=== PATIENT | female | born 1980 | race Caucasian/White ===

== ENCOUNTER 2022-04-11 07:48 | Outpatient (CLI) | payer OTHER, SELFPAY ==
[2022-04-11 09:15] LABS: Albumin* 4.4 g/dL (3.3-5.0)
[2022-04-11 09:16] LABS: Chloride* 106 mmol/L (96-114); Potassium* 4.2 mmol/L (3.6-5.1); Sodium* 140 mmol/L (135-149)
[2022-04-11 09:18] LABS: Bilirubin Total* 0.8 mg/dL (0.1-1.5); Carbon Dioxide* 25 mmol/L (20-32); Cholesterol* 180 mg/dL (90-199); Creatinine* 0.6 mg/dL (0.5-1.5); Estimated Glomerular Filt Rate 116 ml/min
[2022-04-11 09:19] LABS: Alanine Aminotransferase* 55 U/L (4-35); Alkaline Phosphatase* 100 U/L (40-150); Aspartate Amino Transferase* 45 U/L (12-35); Blood Urea Nitrogen* 17 mg/dL (5-24); Calcium* 9.4 mg/dL (8.4-10.6); Glucose* 90 mg/dL (60-115); HDL Cholesterol* 34 mg/dL (>=50); LDL Cholesterol Calculated 113 mg/dL (<100); Triglycerides* 163 mg/dL (40-149)
== END 2022-04-11 07:49 | disposition home or self-care (01) ==
LOC: NFLDREF 07:48
PROVIDERS: PCP Family Medicine; Visit Provider Family Medicine
DX: Z01.419 Encounter for gynecological examination (general) (routine) without abnormal findings (principal); E55.9 Vitamin D deficiency, unspecified; E66.9 Obesity, unspecified; F41.8 Other specified anxiety disorders; Z13.228 Encounter for screening for other metabolic disorders; Z13.6 Encounter for screening for cardiovascular disorders
CPT/HCPCS: 80053; 80061

== ENCOUNTER 2023-06-18 07:59 | Outpatient (CLI) | payer BC, SELFPAY | END 2023-06-18 08:00 | disposition home or self-care (01) | LOC: NFLDREF 06-30 18:36 | PROVIDERS: PCP Family Medicine; Referring Provider Family Medicine; Visit Provider Family Medicine | DX: E55.9 Vitamin D deficiency, unspecified (principal); L40.50 Arthropathic psoriasis, unspecified; Z79.899 Other long term (current) drug therapy | CPT/HCPCS: 80053; 80061; 82306 ==

== ENCOUNTER 2023-09-16 14:53 | Outpatient (CLI) | payer BC, SELFPAY ==
--- NOTE | 2023-09-16 15:20 | MM_ITS ---
Patient: NOEMI SEVERINO Facility:?[facility] Patient ID:?[id number] Site Patient ID:?[id number] Site :?[id number] Study:?XRay-Breast Bilateral 3D W/CAD-09/16/2023 3:46:58 PM Ordering Physician:Edith Jean Final Report: BILATERAL SCREENING MAMMOGRAM WITH COMPUTER-AIDED DETECTION AND TOMOSYNTHESIS TECHNIQUE: CC and MLO views were obtained. These mammographic images have been obtained using full-field digital technique. These mammographic images were interpreted with the benefit of computer-aided detection. Breast Tomosynthesis was used in this interpretation. COMPARISON FILM: 04/08/21. FINDINGS: There are scattered areas of fibroglandular density. IMPRESSION: There is no radiographic evidence for malignancy. ASSESSMENT: BI-RADS Category 1: Negative RECOMMENDATION: Routine screening mammogram in 1 year. A lay language report of this examination will be provided to the patient. Matteo Patel M.D. Diagnostic Radiologist [email or web address] DSM/sp R& Transcribed: 3:55 p.m. SP/Dictated by: Matteo Patel MD @ 09/17/2023 1:07:00 PM Signed by:?Matteo Patel MD @09/17/2023 3:59:50 PM (Electronic Signature)
== END 2023-09-16 14:54 | disposition home or self-care (01) ==
LOC: MAMMO 14:53
PROVIDERS: PCP Family Medicine; Visit Provider Family Medicine
DX: Z12.31 Encounter for screening mammogram for malignant neoplasm of breast (principal)
CPT/HCPCS: 77063; 77067

== ENCOUNTER 2024-08-30 08:05 | Outpatient (CLI) | payer OTHER, SELFPAY | END 2024-08-30 08:06 | disposition home or self-care (01) | LOC: NFLDREF 09-02 01:50 | PROVIDERS: PCP Family Medicine; Referring Provider Family Medicine; Visit Provider Family Medicine | DX: E78.5 Hyperlipidemia, unspecified (principal); E55.9 Vitamin D deficiency, unspecified; L40.50 Arthropathic psoriasis, unspecified; M81.0 Age-related osteoporosis without current pathological fracture; E66.9 Obesity, unspecified; F41.8 Other specified anxiety disorders | CPT/HCPCS: 80053; 80061; 82306 ==